=== PATIENT | female | born 1980 | race Two or more races ===

== ENCOUNTER 2017-06-03 08:09 | Emergency (ER) | payer MEDICAID ==
[2017-06-03 08:44] LABS: % BASOPHILS 0.8 % (0.0-2.0); % EOSINOPHILS 2.7 % (0.0-5.0); % LYMPHOCYTES 32.1 % (20.0-50.0); % MONOCYTES 11.5 % (2.0-10.0); % NEUTROPHILS 52.9 % (40.0-80.0); HEMATOCRIT 36.1 % (41.0-60); HEMOGLOBIN 11.8 gm/dL (12-16); MEAN CELL VOLUME 81.3 fl (81-100); MEAN CORPUSCULAR HEMOGLOBIN 26.6 pg (27.0-31.0); MEAN CORPUSCULAR HGB CONC 32.7 pg (28.0-36.0); NEUTROPHILE ABSOLUTE 3.4 Th/cmm (1.8-8.0); PLATELET COUNT 237 Th/cmm (150-400); RED BLOOD COUNT 4.44 Mil/cmm (3.80-5.10); RED CELL DISTRIBUTION WIDTH 12.3 % (11.5-20.0)
[2017-06-03] MEDS: Sodium Chloride 0.9% 500 ML IV ONE (08:46)
[2017-06-03 09:07] LABS: BUN - UREA NITROGEN 21 mg/dL (7-25); CALCIUM SERUM 9.6 mg/dL (8.6-10.3); CHLORIDE 102 mEq/L (98-107); CREATININE - SERUM 0.5 mg/dL (0.6-1.2); GLUCOSE 95 mg/dL (70-105); SODIUM SERUM 131 mEq/L (136-145)
[2017-06-03 09:19] LABS: WHITE BLOOD COUNT 6.5 Th/cmm (4.8-10.8)
--- NOTE | 2017-06-03 14:14 | ER Physician Documentation ---
DATE OF SERVICE: 06/03/2017 EMERGENCY ROOM HISTORY AND PHYSICAL EXAMINATION CONSULTATION AND TREATMENT REPORT IDENTIFYING DATA: She is an [place] female patient, 37-year-old. She works at [employer]. 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 She had no fractures, no injuries, no accidents. HISTORY OF PRESENT ILLNESS: The patient for the first time had this dizziness. She does not have any ear infection, does not have any stroke, paralysis, blindness, TB, blood clots, ulcers. Never had any dizziness. Never had any ear infection, vestibular neuritis or vertigo symptoms in the past. The patient did not eat or drink except for one orange at night. Most likely she may be dehydrated and had vasovagal attack, that she went down. She will be given some fluids and the patient will get CBC and BMP and give her meclizine for Antivert in case of vertigo was the cause that she does not remember. PAST MEDICAL HISTORY: Benign and negative. PERSONAL HISTORY: Benign and negative. She is , has children. ALLERGIES: None known. DRUG HABITS: None known. CURRENT MEDICATIONS: None. REVIEW OF SYSTEMS: CARDIAC: There is no history of heart disease, no history of heart attack, myocardial infarction, rheumatic fever, valvular heart disease, pericarditis. RESPIRATORY: No history of any lung problem, pneumonia, TB, no evidence of any bronchitis, cough or shortness of breath. ENDOCRINE: No history of diabetes mellitus, hypo or hyperthyroidism. BONES AND JOINTS: No apparent complaints. GENITOURINARY: The patient does not have any burning, frequency, dysuria. No evidence of any urinary infection. The patient will be given some fluids, etc. PHYSICAL EXAMINATION: GENERAL: The patient appears to be awake, alert and oriented. General exam is otherwise benign and negative. HEENT: Eyes normal. Conjunctivae pink. Sclerae white. HEENT is normal. No meningeal signs. No vestibular signs. No evidence of any cerebellar signs. Overall central nervous system examination is benign and negative. ER examination is benign and negative. Moving the head from left to right in a rapid direction is also negative. No evidence of any neurovestibular disease. CHEST: Clear. No rales, rhonchi, bronchial breathing. ABDOMEN: Soft, benign and negative. CENTRAL NERVOUS SYSTEM: Normal. HEART: Normal heart sounds. Soft fourth heart sound. Second heart sound physiologically split. Third heart sound is absent. CLINICAL IMPRESSION: The patient has dizziness and went down on the floor, most likely it is a vasovagal attack. We will check the CBC, BMP to see if she is dehydrated or any evidence of anemia. We will give her some fluids and then if everything is normal, then the patient will be sent home. She has been given meclizine in case if there is any vertigo causing this thing and then we will decide about after we get the lab results what further to be done for her. Thank you again. This was explained to the patient and the nurse in charge, Abhijeet, and Heather, the nurse, also was informed. JOB# [id number]
== END 2017-06-03 10:03 | disposition home or self-care (01) ==
LOC: ER 08:09
DX: R42 Dizziness and giddiness (principal)
CPT/HCPCS: 99284; 36415; 85025; 80048; J7040; Z7502